=== PATIENT | male | born 1990 | race African-American/Black ===

== ENCOUNTER 2017-04-13 15:47 | Emergency (ER) | payer OTHER ==
[~2017-04-13] VITALS: Ht 177.8 cm; Wt 70.3 kg
[~2017-04-13 15:47] MED LIST: ALBU8.5H6 IH
[2017-04-13 15:59] VITALS: BP 114/66
[2017-04-13] MEDS ORDERED: BENZ100C PO (16:41)
[2017-04-13] MEDS ORDERED: PRED50TA PO (16:41)
[2017-04-13] MEDS ORDERED: PROAIR RESPICL90 MCG IH (16:41)
[2017-04-13] MEDS ORDERED: [UNRECOGNIZED DRUG - CODE] PO (16:41)
[2017-04-13] MEDS ORDERED: AMOX1TAB61 PO (16:41)
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
== END 2017-04-13 16:49 | disposition home or self-care (01) ==
LOC: ER 15:47
DX: J01.90 Acute sinusitis, unspecified (principal)
CPT/HCPCS: 99283

== ENCOUNTER 2018-02-17 18:30 | Emergency (ER) | payer OTHER | END 2018-02-17 19:56 | disposition home or self-care (01) | LOC: ER 18:30 | DX: G89.29 Other chronic pain (principal); M79.601 Pain in right arm; R07.81 Pleurodynia; M79.604 Pain in right leg | CPT/HCPCS: 99283 ==

== ENCOUNTER 2018-06-27 23:43 | Emergency (ER) | payer OTHER ==
[~2018-06-27] VITALS: Ht 182.9 cm; Wt 70.3 kg
[~2018-06-27 23:43] MED LIST changes: +AMOX1TAB61 PO; +BENZ100C PO; +PRED50TA PO; +PROAIR RESPICL90 MCG IH; +TRAM50TA PO; +[UNRECOGNIZED DRUG - CODE] PO
[2018-06-28 00:05] VITALS: BP 111/55
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
== END 2018-06-28 01:25 | disposition home or self-care (01) ==
LOC: ER 23:43
DX: B34.9 Viral infection, unspecified (principal)
CPT/HCPCS: 99281

== ENCOUNTER 2018-09-11 22:24 | Emergency (ER) | payer OTHER ==
[~2018-09-11] VITALS: Ht 175.3 cm; Wt 70.3 kg
[2018-09-11] MEDS ORDERED: KETOROLAC 30 MG/ML VIAL. IV ONE (23:00)
[2018-09-11] MEDS: IV NORMAL SALINE 1000ML BAG 1,000 ML IV ONE (23:00)
[2018-09-11 23:04] LABS: BASO # 0.1 x10^3/uL (0.0-0.2); BASO % 0 % (0-3); EOS % 0 % (0-3); HEMATOCRIT 46.8 % (39.0-53.0); HEMOGLOBIN 15.6 g/dL (13.0-17.5); LYMPH # 2.2 x10^3/uL (1.0-4.8); LYMPH % 16 % (24-48); MEAN CORPUSCULAR HEMOGLOBIN 30 pg (25-35); MEAN CORPUSCULAR HGB CONC 33 g/dL (31-37); MEAN CORPUSCULAR VOLUME 90 fL (79-100); MONO # 0.8 x10^3/uL (0.0-1.1); MONO % 6 % (0-9); NEUT # 10.9 x10^3uL (1.8-7.7); NEUT % 78 % (31-73); PLATELET COUNT 253 x10^3/uL (140-400); RED BLOOD COUNT 5.18 x10^6/uL (4.30-5.70); RED CELL DISTRIBUTION WIDTH 14.3 % (11.5-14.5); WHITE BLOOD COUNT 14.1 x10^3/uL (4.0-11.0)
[2018-09-11] MEDS: DIPHTH,PERTUSS(ACELL),TET TOX 0.5 ML DISP.SYRIN. VAX IM ONE (23:05)
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
[2018-09-11 23:12] LABS: PROTHROMBIN TIME PATIENT 13.3 SEC (11.7-14.0)
[2018-09-11] MEDS: fentaNYL PF VIAL 100 MCG/2 ML VIAL IV ONE (23:49)
[2018-09-11 23:50] LABS: BILIRUBIN,URINE NEGATIVE (NEG); CLARITY,URINE CLEAR; COLOR,URINE YELLOW; NITRITE,URINE NEGATIVE (NEG); PH,URINE 6.5; PROTEIN,URINE 100 mg/dL (NEG-TRACE); UROBILINOGEN,URINE 0.2 mg/dL (0.2 mg/dL)
[2018-09-11 23:51] LABS: CALCIUM 9.4 mg/dL (8.5-10.1); CREATININE 1.3 mg/dL (0.7-1.3); GFR 80.1; POTASSIUM 3.1 mmol/L (3.5-5.1)
[2018-09-11 23:55] LABS: HYALINE CASTS, URINE FEW /HPF; SQUAMOUS EPITHELIAL CELL,UR FEW /LPF
[2018-09-11 23:56] LABS: ALBUMIN 3.9 g/dL (3.4-5.0); ALBUMIN/GLOBULIN RATIO 1.1 (1.0-1.7); TOTAL BILIRUBIN 0.5 mg/dL (0.2-1.0); TOTAL PROTEIN 7.4 g/dL (6.4-8.2)
[2018-09-11 23:56] LABS: BACTERIA,URINE 0 /HPF (0-FEW)
[2018-09-11 23:57] LABS: AMPHETAMINE/METHAMPHETAMINE NEG (NEG); BARBITURATES NEG (NEG); BENZODIAZEPINES NEG (NEG); CANNABINOIDS POS (NEG); COCAINE POS (NEG); METHADONE NEG (NEG); OPIATES NEG (NEG); PHENCYCLIDINE NEG (NEG)
[2018-09-11] MEDS: IV NORMAL SALINE 1000ML BAG 1,000 ML IV SCH (23:58)
[2018-09-12] MEDS ORDERED: CONTRAST GIVEN. MC PRN (00:15)
[2018-09-12] MEDS ORDERED: IOHEXOL 300 MG/ML 100ML VIAL. IV ONE (00:30)
[2018-09-12] MEDS: fentaNYL PF VIAL 100 MCG/2 ML VIAL IV ONE (00:46)
[2018-09-12 01:00] VITALS: BP 114/73
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
--- NOTE | 2018-09-12 06:51 | EKG ---
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
--- NOTE | 2018-09-12 06:52 | EKG ---
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
== END 2018-09-12 01:15 | disposition left against medical advice (07) ==
LOC: ER 22:24 → EEVIPCON 22:24 → ER 09-12 01:15
DX: S06.899A Other specified intracranial injury with loss of consciousness of unspecified duration, initial encounter (principal); M54.2 Cervicalgia; R07.89 Other chest pain; M79.651 Pain in right thigh; I21.4 Non-ST elevation (NSTEMI) myocardial infarction; N39.0 Urinary tract infection, site not specified; R10.84 Generalized abdominal pain; F12.20 Cannabis dependence, uncomplicated; G89.29 Other chronic pain; Z88.0 Allergy status to penicillin; Z88.1 Allergy status to other antibiotic agents; Y04.2XXA Assault by strike against or bumped into by another person, initial encounter; Y93.89 Activity, other specified; Y92.89 Other specified places as the place of occurrence of the external cause; Y99.8 Other external cause status
CPT/HCPCS: 36415; 70450; 70491; 71260; 73552; 74177; 80053; 80307; 81001; 83605; 83690; 84484; 85025; 85610; 85730; 86900; 86901; 90471; 90715; 93005; 96365; 96375; 96376; 99284; G0480; J1956; J3010; J7030

== ENCOUNTER 2018-09-12 02:28 | Inpatient (IN) | payer OTHER ==
[~2018-09-12] VITALS: Ht 177.8 cm; Wt 69.9 kg
[2018-09-12] MEDS ORDERED: IV NORMAL SALINE 1000ML BAG 1,000 ML IV SCH (02:48)
[2018-09-12] MEDS ORDERED: ACETAMINOPHEN 325 MG TABLET. PO PRN (03:00)
[2018-09-12] MEDS ORDERED: NITROGLYCERIN SUBLINGUAL 0.4 MG BOTTLE OF 25. SL PRN (03:00)
[2018-09-12] MEDS ORDERED: ANTI-COAG MONITOR BY PHARMACY. MC PRN (03:00)
[2018-09-12] MEDS ORDERED: MORPHINE SULFATE 4 MG/ML VIAL. IV PRN (03:00)
[2018-09-12] MEDS ORDERED: HEPARIN for IV BOLUS 10,000 UNIT/10 ML VIAL. IV PRN (03:00)
[2018-09-12] MEDS ORDERED: HEPARIN 25,000UTS/500ML PREMIX 500 ML IV PRN (03:00)
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
[2018-09-12] MEDS ORDERED: ASPIRIN CHEWABLE 81 MG TABLET. PO ONE (03:30)
[2018-09-12] MEDS ORDERED: IV NORMAL SALINE 1000ML BAG 1,000 ML IV ONE (03:30)
[2018-09-12 04:00] VITALS: BP 118/63
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
[2018-09-12 07:00] VITALS: BP 99/53
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
[2018-09-12] MEDS ORDERED: traMADol 50 MG TABLET PO PRN (09:45)
[2018-09-12] MEDS ORDERED: ALBUTEROL SULFATE 2.5 MG/3 ML NEBU. NEB PRN (10:00)
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
--- NOTE | 2018-09-12 10:30 | NUR ---
Patient became angry and aggressive with staff and Dr. Overton. Patient demanded to leave stating " that he does not need to be here and this is taking to long." He demanded that we take IVs out because he is leaving now. Dr. Overton and this RN attempted to explain to patient why he is here. Patient started to yell and became condescending toward RN and Dr. Overton. IVs removed, AMA paperwork signed. Patient escorted out by security.
[2018-09-12 10:50] LABS: CHOLESTEROL/HDL RATIO 4.1
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
== END 2018-09-12 10:56 | disposition left against medical advice (07) | DRG 280 ==
LOC: ER 02:28 → 2 SOUTH 03:13
PROVIDERS: ADMIT Family Medicine; ATTEND Family Medicine
DX: I21.4 Non-ST elevation (NSTEMI) myocardial infarction (principal); N17.0 Acute kidney failure with tubular necrosis; N39.0 Urinary tract infection, site not specified; F14.10 Cocaine abuse, uncomplicated; F17.210 Nicotine dependence, cigarettes, uncomplicated; E87.6 Hypokalemia; Y04.0XXA Assault by unarmed brawl or fight, initial encounter; G89.29 Other chronic pain; Z88.1 Allergy status to other antibiotic agents; Z88.0 Allergy status to penicillin; Z82.49 Family history of ischemic heart disease and other diseases of the circulatory system
CPT/HCPCS: 36415; 80061; 82550; 83605; 84484; 85520; 93306; 96361; 96374; J1644; J2270; J7030; 99285-25; G0378

== ENCOUNTER → 2019-03-27 | Outpatient (CLI) | payer OTHER ==
--- NOTE | 2019-03-27 17:03 | RAD ---
EXAM: Lumbar spine, 3 views. HISTORY: Pain. COMPARISON: 08/21/2013. FINDINGS: 3 views of the lumbar spine are obtained. There is no listhesis. The vertebral lang are normal in height and the disc is are preserved. IMPRESSION: No acute osseous finding. Electronically signed by: Brooklyn De Dios MD (03/27/2019 5:01 PM) [id number]
--- NOTE | 2019-03-27 17:04 | RAD ---
EXAM: Cervical spine, 3 views. HISTORY: Pain. COMPARISON: None. FINDINGS: 3 views of cervical spine are obtained. There is no listhesis. The vertebral normal in height and the disc spaces are preserved. There is a minimal suspected developmental anterior superior endplate depression at C4 and C5. IMPRESSION: No acute osseous finding. Electronically signed by: Brooklyn De Dios MD (03/27/2019 5:01 PM) [id number]
== END | disposition home or self-care (01) ==
LOC: RAD 16:19
PROVIDERS: ATTEND Surgery
DX: M54.5 Low back pain (principal); M54.2 Cervicalgia
CPT/HCPCS: 72040; 72100